=== PATIENT | male | born 1940 | race Hispanic/Latino ===

== ENCOUNTER 2019-08-14 14:23 | Emergency (ER) | payer MEDICARE ==
[2019-08-14 15:06] LABS: APPEARANCE,URINE Cloudy (CLEAR); BILIRUBIN,URINE Negative (NEGATIVE); COLOR,URINE Yellow (YELLOW); GLUCOSE, URINE (UA) Negative (NEGATIVE); KETONES,URINE Negative (NEGATIVE); LEUKOCYTE ESTERASE ,URINE Large (NEGATIVE); NITRATE,URINE Positive (NEGATIVE); OCCULT BLOOD,URINE Large (NEGATIVE); PH,URINE 5.5 (5.0-8.0); PROTEIN,URINE Negative (NEGATIVE)
[2019-08-14 15:14] LABS: BACTERIA,URINE Moderate /HPF (None Seen)
[2019-08-14 15:15] LABS: SQUAMOUS EPITHELIAL CELL,UR Rare /HPF (0-2)
== END 2019-08-14 16:41 | disposition home or self-care (01) ==
LOC: EDBD 14:23 → EDH 14:23
DX: N39.0 Urinary tract infection, site not specified (principal); E78.00 Pure hypercholesterolemia, unspecified
CPT/HCPCS: 76870; 81001